=== PATIENT | female | born 1945 | race Caucasian/White ===

== ENCOUNTER 2016-08-12 12:12 | Day surgery (SDC) | payer MEDICARE, BC ==
[~2016-08-12] VITALS: Ht 172.7 cm; Wt 85.5 kg
[2016-08-12] MEDS ORDERED: ULTRAM50 MG PO (12:49)
[2016-08-12] MEDS ORDERED: COREG6.25 MG PO (12:49)
[2016-08-12] MEDS ORDERED: OMEPRAZOLE40 MG PO (12:49)
[2016-08-12] MEDS ORDERED: CARAFATE1 G PO (12:49)
[2016-08-12] MEDS ORDERED: BAYER CHEWABLE81 MG PO (12:50)
[2016-08-12] MEDS ORDERED: KRILL OIL 1,001 EAC1 PO (12:50)
[2016-08-12 13:05] LABS: HEMATOCRIT 44.1 % (36.0-48.0); HEMOGLOBIN 14.7 g/dL (12-16); MCH 32.5 pg (26.0-34.0); MCHC 33.3 g/dL (31.0-37.0); MCV 97.6 fL (80.0-100.0); MEAN PLATELET VOLUME 10.3 fL (7.4-10.4); RBC 4.52 10x6/uL (4.00-5.40); RDW 15.4 % (11.5-14.5); WBC 4.1 10x3/uL (4.8-10.8)
[2016-08-12 13:17] LABS: ANION GAP 14.1 mmol/L (8-16); CALCIUM 11.6 mg/dL (8.5-10.1); CARBON DIOXIDE 27.8 mmol/L (21.0-32.0); POTASSIUM - SERUM 3.9 mmol/L (3.5-5.1)
[2016-08-12 13:22] VITALS: Ht 172.7 cm; Wt 85.5 kg
--- NOTE | 2016-08-12 19:11 | NUR ---
1610 BACK FROM EGD. RESP EVEN AND NONLABORED. HOB ELEVATED. DENIES PAIN OR NAUSEA.
--- NOTE | 2016-08-12 19:16 | NUR ---
1640 TOLERATING FULL LIQUIDS ASSISTED ON THE BEDPAN. VOIDED JOSEFINA CARE GIVEN AND REPOSITIONED UP IN THE BED AND FINISHED FULL LIQUIDS.
--- NOTE | 2016-08-12 19:17 | NUR ---
1715 TO HOME VIA W/C WITH SPOUSE.
--- NOTE | 2016-08-12 19:17 | NUR ---
1710 V/S TAKEN. IV DCD CATHETER INTACT. DISCHARGE INSTRUCTIONS GONE OVER AND VERBALLY UNDERSTANDS.
--- NOTE | 2016-09-23 11:24 | OP ---
PATIENT NAME: RAUDEL OWEN MEDICAL RECORD: [id number] :47 [facility] DATE: SURGEON: SUZI FREED MD DATE OF OPERATION: 08/12/2016 PROCEDURE: EGD with biopsy. REPTILE FARMER: Suzi Freed MD SCOPE: Olympus video gastroscope. MEDICATIONS: Per TIVA anesthesia. The indication for TIVA is hypertension, history of peptic ulcer disease, B12 deficiency, anemia, coronary artery disease, carcinoma in situ of the colon. The patient has had a cardiac arrest in the past, cause unspecified. Hyperlipidemia, malignant tumor of the colon and malignant neoplasm of the breast. She received 200 mg of propofol for this procedure, O2 of 4 liters. INDICATION FOR THE PROCEDURE: Recent finding of a very large gastric ulcer at the antral area. FINDINGS: Informed consent was given. The patient was made comfortable with the above medications. After reaching an adequate level of sedation by slow IV push, the patient was placed on her left side. The endoscope was then advanced under direct visualization through the posterior pharyngeal area and advanced to the distal esophagus. At the distal esophageal area, some evidence of reflux esophagitis was appreciated and biopsies were taken. The area of most concern was at the 12 o'clock position at the distal esophageal area, only inflammation however was seen. No ulcers or erosions were appreciated. On entering the stomach and on retroflexion, only minimal inflammation was seen in the cardia and fundus. The body of the stomach also had minimal inflammation present. At the antral area, which was the site of the very large cavernous gastric ulcer, complete resolution and healing has occurred. There was no evidence of any residual ulcer, visible vessel or erosion. We then advanced the scope into the duodenum where we explored the duodenal bulb to the second portion of the duodenum and tissue was normal. The scope was then withdrawn. IMPRESSION: 1. Mild distal reflux esophagitis. 2. Healed gastric ulcer at the antral area. 3. Mild gastritis scattered throughout the entire stomach, but no erosions, no additional ulcers were identified. 4. Normal duodenum, normal bulb and second portion. PLAN: 1. If the patient is not appreciating any signs or symptoms of refluxing and the path report is negative, she can stop all of her GI medications. Otherwise, we may ask her to take famotidine at a dose of 20 mg p.o. b.i.d., which she can purchase [id number] and use intermittently for any symptomatic refluxing. She should also if bothersome avoid chocolate, tomato, citrus, caffeine, fatty foods, peppermint, not eat late at night and sit up for a couple hours after eating. 2. Complete resolution of the previously documented gastric ulcer. 3. Normal duodenum. OPERATIVE REPORT [id number] RAUDEL OWEN 4. Caution with anti-inflammatory drugs. TRANSINT:[id number] Voice Confirmation ID: [id number] DOCUMENT ID: [id number] SUZI FREED MD at 1124 CC: ROXANE OLGUIN MD [id number] DICTATION DATE: 08/12/16 1603 [facility] [employer]NER: 08/12/16 1625 [facility] 08/12/16 [facility] [address] [place] [address]
== END 2016-08-12 17:15 | disposition home or self-care (01) ==
LOC: D.OPS 12:12
PROVIDERS: Anesthesiology
DX: K21.0 Gastro-esophageal reflux disease with esophagitis (principal); K29.50 Unspecified chronic gastritis without bleeding; Z87.11 Personal history of peptic ulcer disease; I10 Essential (primary) hypertension; E53.8 Deficiency of other specified B group vitamins; D64.9 Anemia, unspecified; I25.10 Atherosclerotic heart disease of native coronary artery without angina pectoris; E78.5 Hyperlipidemia, unspecified; Z85.3 Personal history of malignant neoplasm of breast; Z85.038 Personal history of other malignant neoplasm of large intestine

== ENCOUNTER → 2016-09-14 11:44 | Outpatient (CLI) | payer MEDICARE, BC ==
[2016-08-12 13:22] VITALS: BMI 28.6
[~2016-09-14 11:44] MED LIST: BAYER CHEWABLE81 MG PO; CARAFATE1 G PO; COREG6.25 MG PO; KRILL OIL 1,001 EAC1 PO; OMEPRAZOLE40 MG PO; ULTRAM50 MG PO
[2016-09-14 12:56] LABS: ANION GAP 13.5 mmol/L (8-16); CALCIUM 8.9 mg/dL (8.5-10.1); CREATININE - SERUM 0.9 mg/dL (0.6-1.3); POTASSIUM - SERUM 3.5 mmol/L (3.5-5.1); VANCOMYCIN - TROUGH 9.7 ug/mL (10.0-20.0)
[2016-09-14 13:16] LABS: INR 1.14 (0.85-1.17); PROTIME 14.5 SECONDS (11.6-15.0)
== END | disposition home or self-care (01) ==
LOC: D.LABREF 11:44
PROVIDERS: Orthopaedic Surgery
DX: Z51.81 Encounter for therapeutic drug level monitoring (principal); Z79.01 Long term (current) use of anticoagulants

== ENCOUNTER → 2016-09-21 12:14 | Outpatient (CLI) | payer MEDICARE, BC ==
[2016-08-12 13:22] VITALS: BMI 28.6
[2016-09-21 14:27] LABS: INR 1.15 (0.85-1.17); PROTIME 14.6 SECONDS (11.6-15.0)
== END | disposition home or self-care (01) ==
LOC: D.LABREF 12:14
PROVIDERS: Orthopaedic Surgery
DX: L89.323 Pressure ulcer of left buttock, stage 3 (principal)

== ENCOUNTER → 2016-09-28 13:02 | Outpatient (CLI) | payer MEDICARE, BC ==
[2016-08-12 13:22] VITALS: BMI 28.6
[2016-09-28 13:33] LABS: INR 1.03 (0.85-1.17); PROTIME 13.3 SECONDS (11.6-15.0)
[2016-09-28 13:37] LABS: ANION GAP 11.8 mmol/L (8-16); CARBON DIOXIDE 28.9 mmol/L (21.0-32.0); CREATININE - SERUM 1.1 mg/dL (0.6-1.3); POTASSIUM - SERUM 3.7 mmol/L (3.5-5.1); VANCOMYCIN - TROUGH 19.2 ug/mL (10.0-20.0)
== END | disposition home or self-care (01) ==
LOC: D.LABREF 13:02
PROVIDERS: Orthopaedic Surgery
DX: Z51.81 Encounter for therapeutic drug level monitoring (principal); Z79.01 Long term (current) use of anticoagulants

== ENCOUNTER → 2016-10-05 12:46 | Outpatient (CLI) | payer MEDICARE, BC ==
[2016-08-12 13:22] VITALS: BMI 28.6
[2016-10-05 13:53] LABS: ANION GAP 13.2 mmol/L (8-16); CALCIUM 10.4 mg/dL (8.5-10.1); CARBON DIOXIDE 27.4 mmol/L (21.0-32.0); POTASSIUM - SERUM 3.6 mmol/L (3.5-5.1); VANCOMYCIN - TROUGH 20.4 ug/mL (10.0-20.0)
== END | disposition home or self-care (01) ==
LOC: D.LABREF 12:46
PROVIDERS: Orthopaedic Surgery
DX: Z51.81 Encounter for therapeutic drug level monitoring (principal); Z79.01 Long term (current) use of anticoagulants; Z79.2 Long term (current) use of antibiotics

== ENCOUNTER → 2016-10-12 12:32 | Outpatient (CLI) | payer MEDICARE, BC ==
[2016-08-12 13:22] VITALS: BMI 28.6
[2016-10-12 14:45] LABS: ALBUMIN 3.3 g/dL (3.4-5.0); BILIRUBIN - TOTAL 1.09 mg/dL (0.2-1.3); CALCIUM 9.7 mg/dL (8.5-10.1); CARBON DIOXIDE 26.6 mmol/L (21.0-32.0); CREATININE - SERUM 1.2 mg/dL (0.6-1.3); POTASSIUM - SERUM 3.6 mmol/L (3.5-5.1); PROTEIN - SERUM 6.5 g/dL (6.4-8.2); VANCOMYCIN - TROUGH 21.7 ug/mL (10.0-20.0)
== END | disposition home or self-care (01) ==
LOC: D.LABREF 12:32
PROVIDERS: Orthopaedic Surgery
DX: Z51.81 Encounter for therapeutic drug level monitoring (principal); Z79.01 Long term (current) use of anticoagulants; Z79.2 Long term (current) use of antibiotics

== ENCOUNTER → 2016-10-19 13:52 | Outpatient (CLI) | payer MEDICARE, BC ==
[2016-08-12 13:22] VITALS: BMI 28.6
[2016-10-19 14:43] LABS: ANION GAP 13.2 mmol/L (8-16); CALCIUM 10.3 mg/dL (8.5-10.1); CREATININE - SERUM 1.2 mg/dL (0.6-1.3); POTASSIUM - SERUM 3.2 mmol/L (3.5-5.1)
[2016-10-19 15:08] LABS: VANCOMYCIN - TROUGH 25.6 ug/mL (10.0-20.0)
== END | disposition home or self-care (01) ==
LOC: D.LABREF 13:52
PROVIDERS: Orthopaedic Surgery
DX: Z51.81 Encounter for therapeutic drug level monitoring (principal); Z79.01 Long term (current) use of anticoagulants; Z79.2 Long term (current) use of antibiotics

== ENCOUNTER → 2019-11-01 16:43 | Outpatient (CLI) | payer MEDICARE, BC ==
[2016-08-12 13:22] VITALS: BMI 28.6
[2019-11-01 16:55] LABS: HEMATOCRIT 28.7 % (36.0-48.0); HEMOGLOBIN 9.2 g/dL (12-16); MCH 33.7 pg (26.0-34.0); MCHC 32.1 g/dL (31.0-37.0); MCV 105.1 fL (80.0-100.0); MEAN PLATELET VOLUME 9.9 fL (7.4-10.4); PLATELET COUNT 203 10x3/uL (130-400); RBC 2.73 10x6/uL (4.00-5.40); RDW 13.7 % (11.5-14.5); WBC 2.6 10x3/uL (4.8-10.8)
[2019-11-01 16:56] LABS: ANION GAP 14.1 mmol/L (8-16); CALCIUM 8.7 mg/dL (8.5-10.1); CARBON DIOXIDE 24.1 mmol/L (21.0-32.0); POTASSIUM - SERUM 3.2 mmol/L (3.5-5.1)
[2019-11-01 17:01] LABS: INR 1.4 (0.85-1.17)
[2019-11-01 17:12] LABS: EOSINOPHILS 3 % (0-7); LYMPHOCYTES 21 % (15-50); MONOCYTES 2 % (2-11); NEUTROPHILS 74 % (40-80); PLATELET ESTIMATE NORMAL
== END | disposition home or self-care (01) ==
LOC: D.LABREF 16:43
DX: N17.9 Acute kidney failure, unspecified (principal); E87.5 Hyperkalemia; N18.3 Chronic kidney disease, stage 3 (moderate); I25.10 Atherosclerotic heart disease of native coronary artery without angina pectoris

== ENCOUNTER → 2019-11-04 13:00 | Outpatient (CLI) | payer MEDICARE, BC ==
[2016-08-12 13:22] VITALS: BMI 28.6
[2019-11-04 14:31] LABS: ANION GAP 15.5 mmol/L (8-16); CALCIUM 9.5 mg/dL (8.5-10.1); CARBON DIOXIDE 21.6 mmol/L (21.0-32.0); POTASSIUM - SERUM 4.1 mmol/L (3.5-5.1)
== END | disposition home or self-care (01) ==
LOC: D.LABREF 13:00
PROVIDERS: ATTEND Internal Medicine Cardiovascular Disease
DX: I13.10 Hypertensive heart and chronic kidney disease without heart failure, with stage 1 through stage 4 chronic kidney disease, or unspecified chronic kidney disease (principal); E78.5 Hyperlipidemia, unspecified; I25.10 Atherosclerotic heart disease of native coronary artery without angina pectoris; E87.1 Hypo-osmolality and hyponatremia